=== PATIENT | male | born 1995 | race Caucasian/White ===

== ENCOUNTER 2019-05-04 01:37 | Emergency (ER) | payer SELFPAY ==
[2019-05-04 01:38] VITALS: BP 125/79; PULSE 81; RESP 18; TEMP 36.5; O2SAT 100; BMI 38.5
--- NOTE | 2019-05-04 01:46 | EKG12_ITS ---
Test Reason : CP Blood Pressure : / mmHG Vent. Rate : 081 BPM Atrial Rate : 081 BPM P-R Int : 124 ms QRS Dur : 090 ms QT Int : 354 ms P-R-T Axes : 033 036 045 degrees QTc Int : 411 ms Normal sinus rhythm with sinus arrhythmia Normal ECG Confirmed by TYSON NARANJO ([id number]), editorial cartoonist BANDAR DUARTE ([id number]) on 05/06/2019 3:35:36 PM Referred By: NEERAJ Confirmed By:TYSON NARANJO
--- NOTE | 2019-05-04 01:46 | RAD_ITS ---
STUDY: X-RAY CHEST REASON FOR EXAM: Male, 23 years old. C/O SHARP LT SIDED CHEST AND BACK PAIN STARTING MONDAY OR MONDAY -- NKI TECHNIQUE: Single AP portable view of the chest. COMPARISON: None. FINDINGS: The lungs are clear and expanded. There is no demonstrated pleural abnormality. Normal size heart. Normal mediastinum and kelsea. Normal visualized pulmonary arteries. Normal visualized aortic arch and descending thoracic aorta. Normal visualized thoracic spine. Normal visualized ribs, clavicles, and shoulders. There is no demonstrated abnormality of the visualized soft tissue structures of the upper abdomen. RAD/Chest 1 View (Portable) IMPRESSION: Normal x-ray examination of the chest. Electronically Signed: Artem Bui, at 2:57 EST Tel , Service support ,
--- NOTE | 2019-05-04 02:01 | ED.DCSUM_ITS ---
- ER Visit Summary Date of Service: 05/04/19 Chief Complaint: Chest pain History of Present Illness: The patient is a [address] Marcano. He reports that 3 days ago while changing a tire he had the abrupt onset of a left-sided chest pain. Describes it as sharp and stabbing. Is 10 out of 10 in severity. Is worsened by movement of his torso, breathing, or exertion. Has taken ibuprofen without relief. He denies any shortness of breath. He has no personal family history of DVT. No recent travel. No ankle swelling or calf pain. Physical Examination: Vitals: Stable. Afebrile. General: Well-nourished and well-developed. Head: Normocephalic atraumatic. Neck: Supple, no lymphadenopathy. No JVD. Nontender. Cardiovascular: Regular rate and rhythm. No murmurs. Respiratory: No respiratory distress. Clear to auscultation bilaterally. Moderate tenderness palpation to the left side of his chest that does reproduce his pain. Abdominal: Soft, nontender, nondistended, normal bowel sounds. No guarding, rebound, or peritoneal signs. Back: Nontender. Extremities: Nontender, no edema. Skin: Normal color, no rash. Neurologic: Alert and oriented ?3. Cranial nerves II through XII are intact. Normal strength and sensation. Psych: Normal affect. Test Results: Chest x-ray shows no acute disease. No pneumothorax. EKG is sinus with sinus arrhythmia at 81 with no acute changes. Emergency Department Course and Treatment: Patient was treated with naproxen. He is resting comfortably. Treatment Plan: Patient will be discharged with symptomatic care. Warm compresses to the area. Avoid activities that increase the pain. Use Tylenol and naproxen for pain. Follow-up with his primary care physician 1 week if not improving. Return to the emergency department for any worsening symptoms. Disposition: To home in improved and stable condition. Impression: 1. Chest wall strain. This note was generated with [employer] dictation software. It may contain incorrect words, spelling, and punctuation that were not noted in review of the chart prior to signing ED Disposition - Plan for ED Patient: Instructions: Chest Wall Strain Prescriptions: Naproxen [Naprosyn] 500 mg PO BID #20 tab Prescription Printed Referrals: Tuyet Marcano, FRANCISCA-C [NON-STAFF] - 1 Week if not improving
[2019-05-04] MEDS: Naproxen 250 MG Tablet 500 MG PO (02:06)
[2019-05-04 02:22] VITALS: RESP 16
== END 2019-05-04 02:23 | disposition home or self-care (01) ==
LOC: ED 02:17
PROVIDERS: Emergency Provider Emergency Medicine
DX: S29.011A Strain of muscle and tendon of front wall of thorax, initial encounter (principal); X58.XXXA Exposure to other specified factors, initial encounter; Y93.9 Activity, unspecified; Y92.89 Other specified places as the place of occurrence of the external cause; Y99.9 Unspecified external cause status; F17.210 Nicotine dependence, cigarettes, uncomplicated
CPT/HCPCS: 71045; 93005; 99282

== ENCOUNTER 2021-07-05 12:55 | Emergency (ER) | payer SELFPAY ==
[2021-07-05 12:56] VITALS: BP 164/94; PULSE 118; RESP 18; TEMP 36.2; O2SAT 98; BMI 34.0
--- NOTE | 2021-07-05 13:56 | EX.ED.DYSGE1 ---
HPI History of Present Illness Chief Complaint: Lower Extremity Injury Narrative Narrative: Patient presents with bilateral knee pain, this is been ongoing for multiple years since adolescent. It is anterior in the patellar region. He has no new trauma recently. He does work using heavy equipment, he does lift heavy. In going over his duties he does often bend in such a way that his knee goes over his toe thus putting a lot of strain on the patellar tendon. PFSH PFS Medical History Bilateral knee pain Contact dermatitis due to poison radha Strain of left hand Strain of left wrist Home Medications prednisone 10 mg tablet 10 mg PO DAILY #30 tab 05/06/21 [Rx Last Taken Unknown] naproxen [Naprosyn] 500 mg PO BID #20 tab 07/05/21 [Rx Last Taken Unknown] Allergy/AdvReac Type Severity Reaction Status Date / Time blueberry Allergy Anaphylaxis Verified 07/05/21 12:56 amoxicillin [From Augmentin] AdvReac Rash Verified 07/05/21 12:56 clavulanic acid AdvReac Rash Verified 07/05/21 12:56 [From Augmentin] Social History Smoking Status: Heavy Smoker (>10/day) Tobacco: How many years used: 4 ROS ROS ED ROS Narrative Past medical history: none Medications: Reviewed Social history: Noncontributory Review of systems: Musculoskeletal: Bilateral knee pain as in HPI Skin: No abrasions or lacerations Neurological: No weakness or paresthesias Hematologic: No easy bleeding or easy bruising EXAM Physical Exam Narrative Exam Narrative: Physical exam General: Patient does not appear in significant distress . Head: Normocephalic, Atraumatic Neck: No C-spine tenderness Cardiovascular: Normal distal pulses Back: Nontender, Normal Inspection. Extremities: Patient has tenderness over both patellar tendon region. There is no effusion there is no laxity. Both extensor mechanisms are normal. No erythema or calor. 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 Regardless I will refer him to orthopedics I showed him how to pick things up and how to protect his knees, I told him he would need some strengthening. Otherwise I believe he can be safely discharged I do not see a reason for emergent x-rays in the ED Discharge Plan Triage Chief Complaint: Lower Extremity Injury ED Provider: Dimas Cohen Dx/Rx/DC Orders Clinical Impression: Bilateral knee pain, Patellar tendinitis Instructions: ED Tendonitis Prescriptions: New naproxen [Naprosyn] 500 mg tablet 500 mg PO BID Qty: 20 RF: 0 No Action prednisone 10 mg tablet 10 mg PO DAILY Qty: 30 RF: 0 Primary Care Provider: Tuyet Joe NP Referrals: Ty Lozada MD [STAFF PHYSICIAN] - 2 Days Tuyet Joe NP, [employer] [Primary Care Provider] - Disposition Disposition: Home, Self Care
== END 2021-07-05 14:05 | disposition home or self-care (01) ==
PROVIDERS: Emergency Provider Emergency Medicine; PCP Nurse Practitioner Family; Visit Provider Emergency Medicine
DX: M76.50 Patellar tendinitis, unspecified knee (principal); M25.561 Pain in right knee; M25.562 Pain in left knee; F17.200 Nicotine dependence, unspecified, uncomplicated
CPT/HCPCS: 99282

== ENCOUNTER 2022-09-29 15:56 | Emergency (ER) | payer SELFPAY ==
[2022-09-29 15:57] VITALS: BP 122/79; PULSE 120; RESP 18; TEMP 37.2; O2SAT 100; BMI 38.1
--- NOTE | 2022-09-29 16:06 | EX.ED.DYSGE1 ---
HPI <TIANA De Luna - Last Filed: 09/29/22 16:35> History of Present Illness Chief Complaint: Lower Extremity Injury Narrative Narrative: Patient presents with chronic right knee pain. He has had pain in both knees off and on since high school. His right knee bothers him every other day and occasionally swells but the pain seemed worse this morning when he got up. There is no history of injury. No weakness numbness or tingling. He has had x-rays in the past and were told it was normal but has never seen a specialist for this. PFSH <TIANA De Luna - Last Filed: 09/29/22 16:35> [facility] Medical History Bilateral knee pain Contact dermatitis due to poison radha Strain of left hand Strain of left wrist Home Medications prednisone 10 mg tablet 10 mg PO DAILY #30 tabs 05/06/21 [Rx Last Taken Unknown] naproxen 500 mg tablet (Naprosyn) 500 mg PO BID #20 tabs 07/05/21 [Rx Last Taken Unknown] naproxen 500 mg tablet (Naprosyn) 500 mg PO BID PRN pain #20 tabs 09/29/22 [Rx Last Taken Unknown] Allergy/AdvReac Type Severity Reaction Status Date / Time blueberry Allergy Anaphylaxis Verified 09/29/22 15:57 amoxicillin [From Augmentin] AdvReac Rash Verified 09/29/22 15:57 clavulanic acid AdvReac Rash Verified 09/29/22 15:57 [From Augmentin] Social History Smoking Status: Heavy Smoker (>10/day) Tobacco: How many years used: 4 ROS <TIANA De Luan - Last Filed: 09/29/22 16:35> ROS ED ROS Narrative Constitutional: Negative for fever, chills, malaise. CVS: Negative for chest pain. Respiratory: Negative for shortness of breath. Neuro: Negative for motor/sensory dysfunction. Skin: Negative for rash, abscess, or wound. Musc: Positive for right knee pain. No trauma. EXAM <TIANA De Luna - Last Filed: 09/29/22 16:35> Physical Exam Narrative Exam Narrative: CONST: Patient sitting in no acute distress. EYES: Normal inspection. NECK: Normal inspection. RESP: No respiratory distress, CTAB. CVS: Regular rate and rhythm, no murmur, no gallop. SKIN: Color normal, no rash, warm, dry, intact. EXTREMITIES: Normal appearance of bilateral lower extremities, full range of motion with normal extension, normal strength and sensation, 2+ DP pulses. Slightly tender over left lateral knee, negative anterior/posterior and varus and valgus stress. NEURO: Oriented x4. PSYCH: Normal affect. Const Vital Signs: 09/29/22 15:57 Temperature 99 F Temperature Source Temporal Pulse Rate 120 H Respiratory Rate 18 Blood Pressure 122/79 H Blood Pressure Mean 93 Pulse Ox 100 <Dr. Willian Pena MD - Last Filed: 09/29/22 17:21> Physical Exam Const Vital Signs: 09/29/22 15:57 Temperature 99 F Temperature Source Temporal Pulse Rate 120 H Respiratory Rate 18 Blood Pressure 122/79 H Blood Pressure Mean 93 Pulse Ox 100 MDM <TIANA De Luna - Last Filed: 09/29/22 16:35> [facility] Narrative Medical decision making narrative: History gathered from: Patient and significant other Patient was evaluated for chronic right knee pain. He is able to fully extend and is neurovascularly intact. No obvious ligamentous or meniscal injury based on exam. He has had negative x-rays in the past and since there has been no new trauma there is no need for repeat films. He was treated with Toradol and prescribed naproxen. We discussed RICE protocol and I referred him to orthopedics since this is an ongoing issue. He was discharged in stable condition. Differential: Knee sprain, bursitis, ligamentous or meniscal injury <Dr. Willian Pena MD - Last Filed: 09/29/22 17:21> [facility] Treatment and Re-Evaluation :: I have personally performed a face to face assessment of the patient and have reviewed the JAMES Note. I performed a substantive portion of the visit including all aspects of the following. My silva findings include: History: Patient presents with right knee pain. He states this has been going on for at least 6 years. 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 The right one hurts the most and is the biggest issue. It hurts mostly in the front of the knees. He does have good days and bad days. He does have a bit of a theater sign by history. No prior surgery. He has had no fevers or chills. He has no acute trauma. No recent infection Exam: Patient awake alert no acute distress. The knee is not swollen. There is no effusion. No warmth or redness. No indication whatsoever of infection. He points mostly to the anterior surface around the patella as the area of his pain. He does have a little bit of crepitance with motion making me suspect there is a component of patellofemoral syndrome. Medical Decision Making: There really is not any indication specifically for x-ray. He has chronic symptoms. He has had x-rays before. He has no acute change. But he does need follow-up which was explained to him. Discharge Plan Triage Chief Complaint: Lower Extremity Injury ED Midlevel Provider: Flora Elizondo ED Provider: Willian Pena Dx/Rx/DC Orders Clinical Impression: Knee pain, right Instructions: ED Knee Pain of Uncertain Cause Prescriptions: New naproxen [Naprosyn] 500 mg tablet 500 mg PO BID PRN (Reason: pain) Qty: 20 0RF No Action prednisone 10 mg tablet 10 mg PO DAILY Qty: 30 0RF Hold Instructions: Order Completed Rx Instructions: 4 tablets daily x3 days, then 3 tablets daily x3 days, then 2 tablets daily x3 days, then 1 tablet daily x3 days. naproxen [Naprosyn] 500 mg tablet 500 mg PO BID Qty: 20 0RF Hold Instructions: Order Completed Primary Care Provider: Care Physician,No Primary Referrals: Ty Lozada MD [Med Staff - Active Staff] - Care Physician,No Primary [Primary Care Provider] - Activity Restrictions/Additional Instructions: Follow-up with the orthopedic doctor Disposition Disposition: Home, Self Care Discharge Date/Time: 09/29/22 16:44
[2022-09-29] MEDS: Ketorolac 30 MG/ML Syringe IM (16:17)
== END 2022-09-29 16:44 | disposition home or self-care (01) ==
PROVIDERS: Emergency Provider Emergency Medicine; Visit Provider Emergency Medicine
DX: M25.561 Pain in right knee (principal); F17.210 Nicotine dependence, cigarettes, uncomplicated; G89.29 Other chronic pain
CPT/HCPCS: 96372; 99283

== ENCOUNTER 2023-01-27 07:16 | Emergency (ER) | payer SELFPAY ==
[2023-01-27 07:17] VITALS: BP 130/82; PULSE 74; RESP 16; TEMP 35.3; O2SAT 100; BMI 38.5
--- NOTE | 2023-01-27 07:37 | EDS_ITS ---
HPI HPI - GI History of Present Illness Chief Complaint: GI Bleed Informant: patient Narrative Narrative: Patient had a bowel movement today with bright red blood mixed in with it. He denies any rectal pain, abdominal pain, abdominal distention, nausea, vomiting, fevers, chills, tremors, lightheadedness, fatigue or weakness, problems urinating. States he has never had this before. He states in the ER once, he was diagnosed with fatty liver disease. He drinks alcohol infrequently. He does not have a PCP and has never followed up about this. He does not have a family history of colon cancer at young ages, nor liver disease that he knows of. He has never been diagnosed with cirrhosis. He has never had any jaundice, diffuse unexplained pruritus, or any other symptoms right now. He has not been constipated, he denies straining to have bowel movements recently. [facility] Medical History (Updated 01/27/23 @ 07:[address] Ender Escobar MD) Bilateral knee pain Contact dermatitis due to poison radha Fatty liver Strain of left hand Strain of left wrist Home Medications prednisone 10 mg tablet 10 mg PO DAILY #30 tabs 05/06/21 [Rx Last Taken Unknown] naproxen 500 mg tablet (Naprosyn) 500 mg PO BID #20 tabs 07/05/21 [Rx Last Taken Unknown] naproxen 500 mg tablet (Naprosyn) 500 mg PO BID PRN pain #20 tabs 09/29/22 [Rx Last Taken Unknown] hydrocortisone 1 %-pramoxine 1 % rectal foam (Proctofoam HC) 1 applic [place] QHS 1 week #10 grams 01/27/23 [Rx Last Taken Unknown] Allergy/AdvReac Type Severity Reaction Status Date / Time blueberry Allergy Anaphylaxis Verified 01/27/23 07:24 amoxicillin [From Augmentin] AdvReac Rash Verified 01/27/23 07:24 clavulanic acid AdvReac Rash Verified 01/27/23 07:24 [From Augmentin] Social History Smoking Status: Heavy Smoker (>10/day) Tobacco: How many years used: 4 ROS ROS ED Constitutional Constitutional ED: Denies chills or fever(s) Eyes Eyes: Denies change in vision or diplopia ENT ENT ED: Denies rhinorrhea or sore throat Cardiovascular Cardiovascular: Denies chest pain or palpitations Respiratory/Chest Respiratory/Chest: Denies cough or dyspnea Gastrointestinal Gastrointestinal: Reports as per HPI and rectal bleeding; Denies abdominal pain, diarrhea, nausea or vomiting Genitourinary Genitourinary ED: Denies dysuria or hematuria Musculoskeletal Musculoskeletal: Denies back pain or neck pain Integumentary Denies abscess or rash Neurologic Neurologic: Denies headache(s), paresthesias or weakness Psychiatric Psychiatric: Denies anxiety or suicidal thoughts EXAM Physical Exam Const Vital Signs: 01/27/23 07:17 Temperature 95.6 F L Temperature Source Temporal Pulse Rate 74 Respiratory Rate 16 Blood Pressure 130/82 H Blood Pressure Mean 98 Pulse Ox 100 Oxygen Delivery Method Room Air Positive well nourished and well developed General Appearance ED: well developed and NAD HEENT Reports moist mucous membranes normocephalic and atraumatic Eyes PERRL and EOMs intact bilaterally Neck full ROM and supple Resp normal respiratory effort and clear to auscultation bilaterally Cardio regular rate, regular rhythm and no murmurs GI non-tender and non-distended GI Narrative: Perianal/rectal exam is normal unremarkable. There are no external hemorrhoids. There is no tenderness or sign of an abscess. On HENOK, there is no tenderness and no blood, trace amount of light brown stool, no melena. Auscultation: normoactive bowel sounds Palpation: soft Back/Spine no CVA tenderness General Back: other FROM Extremity normal to inspection General Extremety ED: Negative for edema, pulses abnormal or tenderness General Extremity: Negative for edema or pulses abnormal Neuro oriented x3, CN's II-XII intact bilaterally and no sensory deficits noted Sensorium / Orientation: awake and alert Motor Exam: strength 5/5 throughout Skin no rashes or lesions noted and no wounds MDM MDM MDM Narrative Medical decision making narrative: This patient does not have any signs or symptoms of cirrhosis. He was told that fatty liver could give him rectal bleeding. I advised him that this would only be the case if he had full out cirrhosis, which would likely be giving him other symptoms that he does not have. I do not think he needs a full work-up here in the ER emergently. Much more likely cause of his rectal bleeding would be an internal hemorrhoid that is not related to cirrhosis. I think treating this w ith Proctofoam would be reasonable, and follow-up with the primary doctor if it does not help, or returning to the ER if he develops other symptoms which we discussed. He is comfortable with that plan. He was given a PCP the next on the unassigned list. I think he needs to start there for this, I advised usually fatty liver is need to be followed to ensure things are not progressing or worsening, and he may need to be referred for colonoscopy if this bleeding persists. Discharge Plan Triage Chief Complaint: GI Bleed ED Provider: Ender Escobar Dx/Rx/DC Orders Clinical Impression: Painless rectal bleeding Instructions: ED Lower GI Bleeding (Stable) Prescriptions: New Proctofoam HC 1-1 % foam 1 applic SD QHS 7 Days Qty: 10 0RF No Action prednisone 10 mg tablet 10 mg PO DAILY Qty: 30 0RF Hold Instructions: Order Completed Rx Instructions: 4 tablets daily x3 days, then 3 tablets daily x3 days, then 2 tablets daily x3 days, then 1 tablet daily x3 days. naproxen [Naprosyn] 500 mg tablet 500 mg PO BID Qty: 20 0RF Hold Instructions: Order Completed naproxen [Naprosyn] 500 mg tablet 500 mg PO BID PRN (Reason: pain) Qty: 20 0RF Hold Instructions: Pt has been DC'd Stand Alone Forms: ED Work / School Excuse Primary Care Provider: Care Physician,No Primary Referrals: Amanda Mary, [Med Staff - Application Support Consultant] - Care Physician,No Primary [Primary Care Provider] - Disposition Disposition: Home, Self Care
== END 2023-01-27 07:58 | disposition home or self-care (01) ==
LOC: ED 07:51
PROVIDERS: Emergency Provider Emergency Medicine; Visit Provider Emergency Medicine
DX: K62.5 Hemorrhage of anus and rectum (principal); K76.0 Fatty (change of) liver, not elsewhere classified; F17.210 Nicotine dependence, cigarettes, uncomplicated
CPT/HCPCS: 99282

== ENCOUNTER 2023-02-13 07:47 | Emergency (ER) | payer OTHER, SELFPAY ==
[2023-02-13 07:48] VITALS: BP 136/87; PULSE 93; RESP 14; TEMP 36.3; O2SAT 100; BMI 36.4
--- NOTE | 2023-02-13 08:29 | ED.VIS.BACK ---
HPI History of Present Illness Chief Complaint: Back Narrative Narrative: 27-year-old male presenting with lower back pain. He states this started overnight. He lifted a heavy gas tank yesterday. He states he gradually had worsening pain and points to his lower back. It does not lateralize. No history of kidney stones. Urinary complaints. No constipation or diarrhea. No loss of bladder bowel control or saddle anesthesia. Patient states that he has been trying ibuprofen, Tylenol, hot baths without significant relief. He has not had any direct trauma. He is ambulatory. [facility] Medical History Bilateral knee pain Contact dermatitis due to poison radha Fatty liver Strain of left hand Strain of left wrist Home Medications prednisone 10 mg tablet 10 mg PO DAILY #30 tabs 05/06/21 [Rx Last Taken Unknown] naproxen 500 mg tablet (Naprosyn) 500 mg PO BID #20 tabs 07/05/21 [Rx Last Taken Unknown] naproxen 500 mg tablet (Naprosyn) 500 mg PO BID PRN pain #20 tabs 09/29/22 [Rx Last Taken Unknown] hydrocortisone 1 %-pramoxine 1 % rectal foam (Proctofoam HC) 1 applic [place] QHS 1 week #10 grams 01/27/23 [Rx Last Taken Unknown] naproxen 500 mg tablet (Naprosyn) 500 mg PO BID PRN pain #20 tabs 02/13/23 [Rx Last Taken Unknown] prednisone 50 mg tablet 50 mg PO DAILY #2 tabs 02/13/23 [Rx Last Taken Unknown] tizanidine 4 mg tablet 4 mg PO Q8H PRN muscle spasticity #20 tabs 02/13/23 [Rx Last Taken Unknown] Allergy/AdvReac Type Severity Reaction Status Date / Time blueberry Allergy Anaphylaxis Verified 02/13/23 07:49 amoxicillin [From Augmentin] AdvReac Rash Verified 02/13/23 07:49 clavulanic acid AdvReac Rash Verified 02/13/23 07:49 [From Augmentin] Social History Smoking Status: Heavy Smoker (>10/day) Tobacco: How many years used: 4 ROS ROS ED Constitutional Constitutional ED: Denies chills, fever(s) or sweats Eyes Eyes: Denies blurry vision or change in vision ENT ENT ED: Denies ear pain or sore throat Cardiovascular Cardiovascular: Denies chest pain, palpitations or racing heartbeat Respiratory/Chest Respiratory/Chest: Denies cough, dyspnea or sputum Gastrointestinal Gastrointestinal: Denies abdominal pain, constipation, diarrhea, nausea or vomiting Genitourinary Genitourinary ED: Denies dysuria, hematuria or urinary frequency Musculoskeletal Musculoskeletal: Reports back pain; Denies arthralgias, myalgias or neck pain Integumentary Denies abscess, Abrasions or rash Neurologic Neurologic: Denies headache(s), paresthesias or weakness Psychiatric Psychiatric: Denies anxiety, depression, suicidal ideation or suicidal thoughts Endocrine Endocrinology: Denies polydipsia or polyuria EXAM Physical Exam Const Vital Signs: 02/13/23 07:48 Temperature 97.3 F L Temperature Source Temporal Pulse Rate 93 Respiratory Rate 14 Blood Pressure 136/87 H Blood Pressure Mean 103 Pulse Ox 100 Oxygen Delivery Method Room Air Positive well nourished General Appearance ED: NAD HEENT Reports moist mucous membranes Eyes PERRL Resp normal respiratory effort Cardio regular rate and regular rhythm Back/Spine Back/Spine Narrative: Tenderness to palpation of the paraspinal musculature of L2 bilaterally. No midline deformity or step-off. Patient able to sit up under his own strength. He is able to twist his trunk and roll over without much difficulty. He is able to lift both of his legs up off the bed he is able to get up and stand. Extremity normal to inspection General Extremety ED: Negative for tenderness Neuro oriented x3 and no sensory deficits noted Motor Exam: strength 5/5 throughout Psych mental status grossly normal MDM MDM MDM Narrative Medical decision making narrative: Patient presenting with lumbar strain. He will be treated with Norflex, Toradol, prednisone ED. I do not believe needs imaging. Will reevaluate. Valuation at 9:40 AM the patient is doing much better. He will be given a prescription for Naprosyn and muscle relaxers for home. Patient presenting short course of prednisone which she will take prior to starting Naprosyn therapy. Follow-up with PCP to assure resolution. Impression: 1 lumbar strain Discharge Plan Triage Chief Complaint: Back ED Provider: Dashawn Ballesteros Dx/Rx/DC Orders Instructions: ED Back Spasm, No Trauma Prescriptions: New prednisone 50 mg tablet 50 mg PO DAILY Qty: 2 0RF tizanidine 4 mg tablet 4 mg PO Q8H PRN (Reason: muscle spasticity) Qty: 20 0RF naproxen [Naprosyn] 500 mg tablet 500 mg PO BID PRN (Reason: pain) Qty: 20 0RF No Action prednisone 10 mg tablet 10 mg PO DAILY Qty: 30 0RF Hold Instructions: Order Completed Rx Instructions: 4 tablets daily x3 days, then 3 tablets daily x3 days, then 2 tablets daily x3 days, then 1 tablet daily x3 days. naproxen [Naprosyn] 500 mg tablet 500 mg PO BID Qty: 20 0RF Hold Instructions: Order Completed naproxen [Naprosyn] 500 mg tablet 500 mg PO BID PRN (Reason: pain) Qty: 20 0RF Hold Instructions: Pt has been DC'd Proctofoam HC 1-1 % foam 1 applic [place] QHS 7 Days Qty: 10 0RF Primary Care Provider: Care Physician,No Primary Referrals: [facility] [Outside] - 3-5 Days Care Physician,No Primary [Primary Care Provider] - Disposition Disposition: Home, Self Care
[2023-02-13] MEDS: Ketorolac 15 MG/ML Vial IM (08:51)
[2023-02-13] MEDS: Orphenadrine 60 MG/2 ML Ampul IM (08:52)
[2023-02-13] MEDS: predniSONE 20 MG Tablet 60 MG PO (08:52)
== END 2023-02-13 09:54 | disposition home or self-care (01) ==
PROVIDERS: Emergency Provider Student in an Organized Health Care Education/Training Program; Visit Provider Student in an Organized Health Care Education/Training Program
DX: S39.012A Strain of muscle, fascia and tendon of lower back, initial encounter (principal); F17.200 Nicotine dependence, unspecified, uncomplicated; X50.0XXA Overexertion from strenuous movement or load, initial encounter; Y93.89 Activity, other specified
CPT/HCPCS: 96372; 99282

== ENCOUNTER 2023-02-28 00:08 | Emergency (ER) | payer OTHER, SELFPAY ==
[2023-02-28 00:09] VITALS: BP 132/91; PULSE 131; RESP 18; TEMP 36.3; O2SAT 96; BMI 37.5
[2023-02-28 00:12] VITALS: PULSE 108
--- NOTE | 2023-02-28 00:19 | EX.ED.DYSGE1 ---
HPI History of Present Illness Chief Complaint: Cold Sx Detail of Chief Complaint: Cold symptoms x 2 days Informant: patient Narrative Narrative: Patient presents emergency department complaint of a sore throat as well as a mild headache and occasional cough. Denies fever although has had some sweats. Denies sick contacts. Cough mostly nonproductive. [facility] Medical History Bilateral knee pain Contact dermatitis due to poison radha Fatty liver Strain of left hand Strain of left wrist Home Medications amoxicillin 500 mg tablet 500 mg PO TID #30 tabs 02/28/23 [Rx Last Taken Unknown] Allergy/AdvReac Type Severity Reaction Status Date / Time blueberry Allergy Anaphylaxis Verified 02/28/23 00:13 amoxicillin [From Augmentin] AdvReac Rash Verified 02/28/23 00:13 clavulanic acid AdvReac Rash Verified 02/28/23 00:13 [From Augmentin] Social History Smoking Status: Heavy Smoker (>10/day) Tobacco: How many years used: 4 ROS ROS ED Review of Systems ROS Unobtainable: other Constitutional Constitutional ED: Reports lethargy and sweats; Denies chills, fever(s) or weight loss Eyes Eyes: Denies blurry vision, change in vision or diplopia ENT ENT ED: Reports sore throat; Denies rhinorrhea Cardiovascular Cardiovascular: Denies chest pain, orthopnea or racing heartbeat Respiratory/Chest Respiratory/Chest: Reports cough; Denies dyspnea, dyspnea on exertion, orthopnea or sputum Gastrointestinal Gastrointestinal: Denies abdominal pain, diarrhea, nausea or vomiting Genitourinary Genitourinary ED: Denies dysuria, hematuria or urinary frequency Musculoskeletal Musculoskeletal: Denies arthralgias, back pain, myalgias or neck pain Integumentary Denies abscess, Abrasions or rash Neurologic Neurologic: Denies headache(s) or weakness Psychiatric Psychiatric: Denies anxiety, depression or suicidal thoughts Endocrine Endocrinology: Denies polydipsia, polyphagia or polyuria Hematologic/Lymphatic Hematologic/Lymphatic: Denies easy bleeding, easy bruising or lymphadenopathy Allergic/Immunologic Allergic/Immunologic ED: Denies mouth swelling, tongue swelling or urticaria EXAM Physical Exam Const Vital Signs: 02/28/23 00:09 02/28/23 00:12 02/28/23 00:59 Temperature 97.3 F L Temperature Source Temporal Pulse Rate 131 H 108 H 112 H Respiratory Rate 18 18 Blood Pressure 132/91 H Blood Pressure Mean 104 Pulse Ox 96 98 Oxygen Delivery Method Room Air Positive well nourished and well developed General Appearance ED: well developed and NAD HEENT Reports TM's clear and moist mucous membranes HEENT Narrative: Mild pharyngeal erythema with tonsils that are +3 with tonsillar exudates noted. Uvula midline. No trismus. No significant cervical adenopathy. normocephalic and atraumatic; Negative for trauma or tenderness Tympanic Membrane ED: Yes TM's clear Eyes PERRL and EOMs intact bilaterally General Eye ED: Negative for pale conjunctiva or scleral icterus Neck no lymphadenopathy, supple and no JVD General: Negative for tenderness Chest Wall inspection of chest normal and palpation of chest normal Chest: Negative for tenderness Resp normal respiratory effort and clear to auscultation bilaterally Effort and Inspection: Negative for respiratory distress or pain with movement Auscultation: Negative for rhonchi, wheezes or diminished lung sounds Cardio regular rate, regular rhythm, S1 normal heart sound, S2 normal heart sound and no murmurs Peripheral Pulses: pulses 2+ throughout GI normal to inspection, nondistended, normoactive bowel sounds, soft to palpation, non-tender, non-distended and no masses Back/Spine no CVA tenderness and no thoracic nor lumbar tenderness Extremity normal to inspection General Extremety ED: Negative for edema General Extremity: Negative for edema Neuro oriented x3, CN's II-XII intact bilaterally, no sensory deficits noted and gait normal Sensorium / Orientation: awake, alert, oriented to person, oriented to place and oriented to time Motor Exam: strength 5/5 throughout and strength abnormal Psych mental status grossly normal Skin no rashes or lesions noted and no wounds MDM MDM MDM Narrative Medical decision making narrative: Patient had a COVID and flu test that were negative. Strep screen was positive. Patient was started on amoxicillin. He tells me is allergic to Augmentin he had a rash but he can take anything else in the penicillin family including amoxicillin which she has had before without any difficulty. Patient advised to return if worsening throat pain, difficulty swallowing, or condition worsening away. Discharge Plan Triage Chief Complaint: Cold Sx ED Provider: Caroline Tellez Dx/Rx/DC Orders Clinical Impression: Acute streptococcal pharyngitis Instructions: ED Pharyngitis, Strep (Confirmed) Prescriptions: New amoxicillin 500 mg tablet 500 mg PO TID Qty: 30 0RF Primary Care Provider: Care Physician,No Primary Referrals: Andrew Gilbert MD [Med Staff - [employer]] - 3-5 Days Care Physician,No Primary [Primary Care Provider] - Disposition Disposition: Home, Self Care Discharge Date/Time: 02/28/23 01:01
[2023-02-28] MEDS: AMOXICILLIN 500 MG CAPSULE PO (00:56)
[2023-02-28 00:59] VITALS: PULSE 112; RESP 18; O2SAT 98
== END 2023-02-28 01:01 | disposition home or self-care (01) ==
PROVIDERS: Emergency Provider Emergency Medicine; Visit Provider Emergency Medicine
DX: J02.0 Streptococcal pharyngitis (principal); F17.200 Nicotine dependence, unspecified, uncomplicated
CPT/HCPCS: 87428; 87880; 99282; A4216

== ENCOUNTER 2023-03-12 02:12 | Emergency (ER) | payer SELFPAY ==
[2023-03-12 02:13] VITALS: BP 133/79; PULSE 100; RESP 18; TEMP 36.6; O2SAT 96; BMI 37.4
[2023-03-12] MEDS: Ibuprofen 600 MG Tablet PO (02:56)
[2023-03-12] MEDS: dexAMETHasone 10 MG/ML Vial PO.IVFORM (02:56)
--- NOTE | 2023-03-12 02:59 | EDS_ITS ---
HPI History of Present Illness Chief Complaint: Sore Throat Informant: patient Narrative Narrative: Patient is a 27-year-old male with no segment past medical history presenting with recurrent throat pain. Patient was seen and evaluated on 02/28 in her ER and diagnosed with strep throat. He had a positive strep test. He was prescribed amoxicillin. He states that he was feeling better about 2 days ago when he started feel worse again. He notes he is now having hard time swallowing and drinking because it so painful. Is been taking ibuprofen with his last dose at noon today. Denies any recent fever. States sometimes he has a cough because of the sensation in his throat but denies any other URI symptoms. Denies any rash. Denies any change in his voice or difficulty opening his mouth. No other complaints or concerns at this time. [facility] Medical History Bilateral knee pain Contact dermatitis due to poison radha Fatty liver Strain of left hand Strain of left wrist Home Medications amoxicillin 500 mg tablet 500 mg PO TID #30 tabs 02/28/23 [Rx Last Taken Unkno wn] Allergy/AdvReac Type Severity Reaction Status Date / Time blueberry Allergy Anaphylaxis Verified 03/12/23 02:16 amoxicillin [From Augmentin] AdvReac Rash Verified 03/12/23 02:16 clavulanic acid AdvReac Rash Verified 03/12/23 02:16 [From Augmentin] Social History Smoking Status: Heavy Smoker (>10/day) Tobacco: How many years used: 4 ROS ROS ED Constitutional Constitutional ED: Denies chills or fever(s) Eyes Eyes: Denies change in vision ENT ENT ED: Reports sore throat; Denies ear pain or rhinorrhea Cardiovascular Cardiovascular: Denies chest pain or palpitations Respiratory/Chest Respiratory/Chest: Denies cough Gastrointestinal Gastrointestinal: Denies nausea or vomiting Integumentary Denies rash Neurologic Neurologic: Denies headache(s) EXAM Physical Exam Const Vital Signs: 03/12/23 02:13 Temperature 97.9 F Temperature Source Temporal Pulse Rate 100 Respiratory Rate 18 Blood Pressure 133/79 H Blood Pressure Mean 97 Pulse Ox 96 Oxygen Delivery Method Room Air Positive well nourished and well developed General Appearance ED: well developed and NAD HEENT Reports TM's clear and moist mucous membranes HEENT Narrative: Erythema and mild edema of the bilateral tonsils, right slightly greater than left. Exudate noted on the left. No asymmetric swelling or uvular deviation present. No trismus. Normal phonation. Tympanic Membrane ED: Yes TM's clear Eyes PERRL and EOMs intact bilaterally Neck no lymphadenopathy and supple Neck Narrative: Range of motion normal and without pain General: Negative for tenderness Chest Wall inspection of chest normal and palpation of chest normal Resp normal respiratory effort Cardio regular rate and regular rhythm GI normal to inspection, nondistended, normoactive bowel sounds Neuro oriented x3 Sensorium / Orientation: alert Psych mental status grossly normal Skin no rashes or lesions noted MDM MDM MDM Narrative Medical decision making narrative: Patient evaluated for recurrent sore throats. Differential includes recurrent strep throat or viral pharyngitis. Low suspicion for peritonsillar abscess based on physical exam. Patient overall is well-appearing does not appear dehydrated. I do not think requires IV fluids. Strep swab as well as flu and COVID swab are obtained. Is given Motrin and Decadron in the ER for symptomatic relief. Patient resting comfortably on repeat evaluation. Strep swab is positive. Will treat with IM Bicillin this time. While he has a documented allergy to Augmentin he states that he can tolerate all other penicillins and it is probably more of an allergy to the clavulanic acid. He states he had no issues with the amoxicillin last time. Given return precautions. Given referral for ENT. Discharged home in stable condition. Discharge Plan Triage Chief Complaint: Sore Throat ED Provider: Zoila Rinaldi Dx/Rx/DC Orders Clinical Impression: Recurrent streptococcal pharyngitis Instructions: ED Pharyngitis, Strep (Confirmed) Prescriptions: No Action amoxicillin 500 mg tablet 500 mg PO TID Qty: 30 0RF Primary Care Provider: Care Physician,No Primary Referrals: Sami Taylor MD [Med Staff - Active Staff] - As Needed Care Physician,No Primary [Primary Care Provider] - Activity Restrictions/Additional Instructions: Given a one-time dose of antibiotics that should clear this up. He also given a dose of steroid to help with the swelling and pain. If you have worsening swelling, difficulty swallowing, increased pain or further concerns please return to the emergency room. Continue to alternate ibuprofen and Tylenol as needed for pain at home. Disposition Disposition: Home, Self Care Discharge Date/Time: 03/12/23 04:42
[2023-03-12] MEDS: Penicillin G Benzathine 1.2 MU/2 ML Syringe IM (04:25)
== END 2023-03-12 04:42 | disposition home or self-care (01) ==
PROVIDERS: Emergency Provider Emergency Medicine; Visit Provider Emergency Medicine
DX: J02.0 Streptococcal pharyngitis (principal); F17.210 Nicotine dependence, cigarettes, uncomplicated
CPT/HCPCS: 87428; 87880; 99283

== ENCOUNTER 2023-03-21 02:56 | Emergency (ER) | payer OTHER, SELFPAY ==
[2023-03-21 02:57] VITALS: BP 142/88; PULSE 94; RESP 16; TEMP 35.6; O2SAT 97; BMI 37.1
[2023-03-21 03:00] VITALS: BP 142/88; PULSE 94; RESP 16; TEMP 35.5; O2SAT 97
--- NOTE | 2023-03-21 03:13 | EX.ED.DYSGE1 ---
HPI History of Present Illness Chief Complaint: Lower Extremity Injury Informant: patient Narrative Narrative: Patient is a 27-year-old male with no significant past medical history. He states that roughly 12 hours ago he was getting out of his car and when he stepped down he twisted and injured his right knee. He states that he has been icing and elevating the knee but is still swollen and painful and he cannot sleep secondary to this and therefore comes in for evaluation. He denies any other injuries and he denies any numbness tingling or weakness [facility] Medical History Bilateral knee pain Contact dermatitis due to poison radha Fatty liver Strain of left hand Strain of left wrist Home Medications amoxicillin 500 mg tablet 500 mg PO TID #30 tabs 02/28/23 [Rx Last Taken Unknown] Allergy/AdvReac Type Severity Reaction Status Date / Time blueberry Allergy Anaphylaxis Verified 03/21/23 02:56 amoxicillin [From Augmentin] AdvReac Rash Verified 03/21/23 02:56 clavulanic acid AdvReac Rash Verified 03/21/23 02:56 [From Augmentin] Social History Smoking Status: Heavy Smoker (>10/day) Tobacco: How many years used: 4 ROS ROS ED Constitutional Constitutional ED: Denies chills or fever(s) ENT ENT ED: Denies sore throat Cardiovascular Cardiovascular: Denies chest pain Respiratory/Chest Respiratory/Chest: Denies cough or dyspnea Gastrointestinal Gastrointestinal: Denies abdominal pain, diarrhea, nausea or vomiting Genitourinary Genitourinary ED: Denies dysuria Musculoskeletal Musculoskeletal: Reports other Details: Positive right knee pain Integumentary Denies Abrasions or rash Neurologic Neurologic: Denies headache(s) or paresthesias Hematologic/Lymphatic Hematologic/Lymphatic: Denies easy bleeding or easy bruising EXAM Physical Exam Const Vital Signs: 03/21/23 02:57 03/21/23 03:00 Temperature 96.0 F L 96 F L Temperature Source Temporal Temporal Pulse Rate 94 94 Respiratory Rate 16 16 Blood Pressure 142/88 H 142/88 H Blood Pressure Mean 106 106 Pulse Ox 97 97 Oxygen Delivery Method Room Air Room Air Positive well nourished and well developed General Appearance ED: well developed HEENT HEENT Narrative: Normocephalic atraumatic Eyes PERRL and EOMs intact bilaterally Neck supple Resp normal respiratory effort and clear to auscultation bilaterally Cardio regular rate and regular rhythm Extremity Extremity Narrative: Right lower extremity is neurovascularly intact. There is mild soft tissue swelling along the anterior aspect of the right knee mainly over top of the medial aspect of the patella/knee. There is no erythema or warmth. No ecchymosis noted. No obvious bony deformity or joint effusion. Patellar tendon is intact. There is slight laxity when stressing the right MCL compared to left concerning for grade 2 MCL sprain. Remainder of the exam is normal Neuro oriented x3, CN's II-XII intact bilaterally and no sensory deficits noted Sensorium / Orientation: alert Psych mental status grossly normal Skin no rashes or lesions noted Skin Narrative: Mild soft tissue swelling to the anterior aspect of the right knee as documented above without obvious erythema or ecchymosis induration or fluctuance MDM MDM MDM Narrative Medical decision making narrative: Patient arrived to the ER slightly hypertensive otherwise with stable vitals. Reported a twisting motion to his right knee roughly 12 hours ago. Differential diagnosis is for meniscus injury versus ligamentous sprain or tear versus potential tibial spine or tibial plateau fracture. Secondary to this an x-ray was obtained. X-ray revealed no acute fracture dislocation or joint effusion. By exam he does have mild ligamentous laxity of the right MCL compared to left and with his history of a twisting motion this would classify as a grade 2 MCL sprain. At this time patient be treated symptomatically and can follow-up with orthopedics to discuss need for further testing such as MRI or treatment options such as bracing but is otherwise safe for discharge. History & Record Review Discussion w/independent historian: Patient Radiography Diagnostic Testing: Clinical Impression(s) from Imaging Studies Knee X-Ray 03/21/23 03:15 IMPRESSION: Negative right knee Electronically Signed: Evans Nagel MD at 3:31 EST , X-ray of the right knee as interpreted by the emergency medicine physician reveals no acute fracture dislocation or joint effusion Discharge Plan Triage Chief Complaint: Lower Extremity Injury ED Provider: Bal Navarrete Dx/Rx/DC Orders Clinical Impression: Grade 2 sprain of medial collateral ligament of right knee Instructions: Medial Collateral Ligament Sprain, ED Knee Sprain Ligaments Prescriptions: No Action amoxicillin 500 mg tablet 500 mg PO TID Qty: 30 0RF Stand Alone Forms: ED Work / School Excuse Primary Care Provider: Care Physician,No Primary Referrals: Denys Richter MD [Med Staff - Active Staff] - Care Physician,No Primary [Primary Care Provider] - Disposition Disposition: Home, Self Care
--- NOTE | 2023-03-21 03:15 | RAD_ITS ---
INDICATION: pain EXAMINATION/TECHNIQUE: X-RAY - RIGHT XR Knee Complete 4 Views or More COMPARISON: Right knee radiographs from 05/06/2021 FINDINGS: SOFT TISSUES: No significant soft tissue swelling or significant joint effusion. No radiopaque foreign body detected. BONES/JOINTS: No acute fracture or subluxation. Normal alignment. Preservation of the joint space(s). No suspicious osseous lesion observed. RAD/Knee 4 or More Views IMPRESSION: Negative right knee Electronically Signed: Evans Nagel MD at 3:31 EST ,
[2023-03-21] MEDS: Ketorolac 30 MG/ML Syringe IM (03:19)
--- OUTSIDE RECORDS SUMMARY | 2023-03-21 03:30 | XMS RPT_ITS | CCD ---
Author Name Unknown Address [email or web address] [place] [address] Organization [facility] Care Team Providers Care Packaging Line Operator Name Role Phone GLORY PALACIO Unavailable Unavailable GLORY PALACIO Unavailable Unavailable GLORY PARKER Primary Care Provider [phone]( [phone] JULES LAMBERT Emergency Provider [phone] Free, Text Entry Unavailable Unavailable BILL, DR ANGELA Lucio Primary Care Unavaila ble BILL, DR ANGELA Lucio Attending Unavaila ble ROBERT, TIMOTHY Consulting Unavailable ROBERT, TIMOTHY Referring Unavailable BILL, DR ANGELA Lucio Admitting Unavaila ble PROVIDER, UNKNOWN Consulting Unavailable ROBERT, TIMOTHY Consulting Unavailable ROBERT, TIMOTHY Referring Unavailable TOLU ARELLANO DO Admitting Unavailable TOLU ARELLANO DO Primary Care Unavailable TOLU ARELLANO DO Attending Unavailable PROVIDER, UNKNOWN Consulting Unavailable JOSE REDMAN, DR BASILIA Gagnon Admitting Unavaila ble JOSE REDMAN, DR BASILIA Gagnon Consulting Unavaila ble JOSE REDMAN, DR BASILIA Gagnon Attending Unavaila ble NONE, NONE Primary Care Unavailable NONE, NONE Consulting Unavailable MAIKOL DOMAYA Consulting Unavailable WOOD DO, TANESHA A Admitting Unavailable WOOD DO, TANESHA A Attending Unavailable NONE, NONE Primary Care Unavailable WOOD DO, TANESHA A Consulting Unavailable NONE, NONE Consulting Unavailable ZAPATA DO, ANUSHKA K Admitting Unavailable ZAPATA DO, ANUSHKA K Attending Unavailable GERARD ARRIAZA MD Consulting Unavailable NONE, NONE Primary Care Unavailable ZAPATA DO, ANUSHKA K Consulting Unavailable NONE, NONE Consulting Unavailable Unavailable Unavailable Unavailable Allergies Allergy Classification Reported Allergen(s) Allergy Type Date of Onset Reaction(s) Facility (2 sources) Amoxicillin Drug Allergy 0 Skin Rash - Hives [facility] Work Phone: (2 sources) clavulanic acid Allergy to substance 0 Skin Rash - Hives [facility] Work Phone: (2 sources) Amoxicillin / Clavulanate Drug Allergy Rash [facility] (1 source) Amoxicillin / Clavulanate Drug Allergy [facility] Repository (1 source) Amoxicillin / Clavulanate Drug Allergy [facility] Repository Medications Current Medications Medication Drug Class(es) Dates Sig (Normalized) Sig (Original) loperamide hydrochloride 2 mg oral capsule (2 sources) Opioid Agonist Start: 01-29-2020 take 1 capsule by mouth three times daily Loperamide Hcl (Loperamide) 2 MG Capsule Active 2 MG PO Three Times A Day January 29, 2020 12:55am Completed/Discontinued Medications Medication Drug Class(es) Dates Sig (Normalized) Sig (Original) NEGATED: Highlighted row has not occurred!No Current Medications (2 sources) No Current Medic ations Problems Active Problems Problem Classification Problem Date Documented Da te Episodic/Chronic Abdominal pain (2 sources) Abdominal pain; Translations: [Abdominal pain] Episodic Allergic reactions (1 source) Allergy status to other antibiotic agents status; Translations: [Allergy status to other antibiotic agents] Onset: 12-23-2021 Episodic Attention-deficit, conduct, and disruptive behavior disorders (1 source) Attention-deficit hyperactivity disorder, unspecified type; Translations: [Attention-deficit hyperactivity disorder, unspecified type] Onset: 12-23-2021 Chronic E Codes: Natural/environment (3 sources) Overexertion from strenuous movement or load, initial encounter; Translations: [Exposure to other specified factors, initial encounter] Onset: 12-20-2021 Episodic Gastrointestinal hemorrhage (2 sources) Hematochezia; Translations: [Blood present in stool] Episodic Nonspecific chest pain (2 sources) Chest pain, unspecified; Translations: [CHEST PAIN UNSPECIFIED] Onset: 03-01-2022 Episodic Other aftercare (1 source) Other intermodal owner operator truck driver (current) drug therapy; Translations: [Other intermodal owner operator truck driver (current) drug therapy] Onset: 12-23-2021 Episodic Other gastrointestinal disorders (2 sources) Diarrhea; Translations: [Diarrhea] Episodic Other gastrointestinal disorders (3 sources) Diarrhea, unspecified; Translations: [DIARRHEA UNSPECIFIED] Onset: 03-16-2022 Episodic Sprains and strains (4 sources) Strain of muscle, fascia and tendon of lower back, initial encounter; Translations: [Strain of muscle and tendon of front wall of thorax, initial encounter] Onset: 12-23-2021 Episodic Substance-related disorders (2 sources) Nicotine dependence, cigarettes, uncomplicated; Translations: [Nicotine dependence, unspecified, uncomplicated] Onset: 12-20-2021 Chronic Unclassified (4 sources) SWOLLEN TESTICLES 09-27-2021 Past or Other Problems Problem Classification Problem Date Documented Da te Episodic/Chronic Administrative/social admission (2 sources) Encounter for pre-employment examination; Translations: [Encounter for pre-employment examination] Onset: 05-31-2017 Episodic Inflammatory conditions of male genital organs (1 source) Inflammatory disorders of scrotum; Translations: [INFLAMMATORY DISORDERS OF SCROTUM] Onset: 09-30-2021 Episodic Other male genital disorders (2 sources) Right testicular pain; Translations: [RIGHT TESTICULAR PAIN] Onset: 09-26-2021 Episodic Results Test Name Value Interpretation Reference Range Facil ity Vital Signs Date Time Vital Sign Value Performing Clinician Yusuf lity 09-27-2021 15:52-0400 Body height 180.[address] [facility] 09-27-2021 15:52-0400 Body temperature 98.6 [degF] Text Entry Free [facility] 09-27-2021 15:52-0400 Diastolic blood pressure 82 mm[Hg] Text Entry Free [facility] 09-27-2021 15:52-0400 Heart rate 107 /min Text Entry Free [facility] 09-27-2021 15:52-0400 SaO2% (BldA) [Mass fraction] 97 % Text Entry Free [facility] 09-27-2021 15:52-0400 Systolic blood pressure 130 mm[Hg] Text Entry Free [facility] 01-29-2020 00:00-0500 BP Diastolic 63 mm[Hg] GLORY [facility] Work Phone: 01-29-2020 00:00-0500 BP Systolic 108 mm[Hg] [facility] Work Phone: 01-29-2020 00:00-0500 Pulse (Heart Rate) 84 /min [facility] Work Phone: 01-29-2020 00:00-0500 Pulse Oximetry 97 % [facility] Work Phone: 01-29-2020 00:00-0500 Respiratory Rate 19 /min [facility] Work Phone: 01-28-2020 21:20-0500 Body Temperature 98.2 [degF] [facility] Work Phone: 01-28-2020 21:20-0500 Body weight 104.33 kg [facility] Work Phone: 01-28-2020 21:20-0500 Height 170.18 cm [facility] Work Phone: Encounters Encounter Date Encounter Type Care Provider Facility Start: 03-16-2022 End: 03-16-[address] BASILIA GARCIA MD Facility:[facility] Start: 03-01-2022 End: 03-02-2022 ambulatory MAYA LASSITER DO Facility:[facility] Start: 12-23-2021 End: 12-23-2021 Emergency department patient visit TIOMTHY JONES [facility] Start: 12-20-2021 End: 12-20-2021 Emergency department patient visit DR ANGELA KHAN [facility] Start: 09-27-2021 End: 09-27-2021 Emergency department patient visit Text Entry Free [facility] Start: 09-26-2021 End: 09-26-2021 ambulatory ANUSHKA ZAPATA DO Facility:[facility] Start: 01-28-2020 End: 01-29-2020 Emergency department patient visit GLORY [facility] Start: 01-27-2020 Emergency department patient visit Facility:[facility] Start: 05-31-2017 [facility] Date Procedure Procedure Detail Performing Clinician Start: 01-28-2020 CT of abdomen and pe lvis without contrast GLORY PARKER Plan of Treatment Date Care Activity Detail Author [facility] Work Phone: Payers Date Payer Category Payer Unknown [id number] [id number] [id number] 1997 Unknown [id number] [id number] [id number] 1997 Unknown [id number] [id number] 1997 Unknown [id number] [id number] [id number] 1997 Unknown [id number] [id number] [id number] 1959 Unknown [id number] 1957 Unknown [id number] Unknown [employer] Social History Date Type Detail Facility Start: 01-29-2020 Tobacco smoking status NHIS Current Light tobacco smoker [facility] Work Phone: Start: 01-29-2020 [facility] Start: 01-29-2020 [facility] Work [facility]: Start: 01-29-2020 Frequently [facility] Work Phone: Start: 01-29-2020 [facility]: Start: 1995 Sex Assigned At Male C [facility] Work Phone: Tobacco smoking consumption unknown [facility] Goals Date Patient Goal Desired Activity /State Summary Purpose Family History No Family History Records FoundNo Family History Records FoundNo Family History Records FoundNo Family History Records FoundNo Family History Records FoundNo Family History Records Found Advance Directives No Advanced Directives Records FoundNo Advanced Directives Records FoundNo Advanced Directives Records FoundNo Advanced Directives Records FoundNo Advanced Directives Records FoundNo Advanced Directives Records Found Chief Complaint and Reason for Visit Chief Complaint STOMACH PAIN BLOOD I N STOOL Assessments No Assessments Information AvailableNo Assessments Information Available Discharge Instructions Additional Instructions fluids. Motrin as needed. imodium for diarrhea. Return for increasing bleeding. Fluids. Advance diet slowly. Call PCP for follow up. Additional Instructions fluids. Motrin as needed. imodium for diarrhea. Return for increasing bleeding. Fluids. Advance diet slowly. Call PCP for follow up. Additional Source Comments (unrecognized sect ion and content) No Status Records FoundNo Status Records FoundNo Status Records FoundNo Status Records FoundNo Status Records FoundNo Status Records Found INFORMATION SOURCE (unrecogn ized section and content) DATE CREATED AUTHOR AUTHOR'S ORGANIZ ATION 01/29/2020 [facility] DATE CREATED AUTHOR AUTHOR'S ORGANIZ ATION 03/03/2020 [facility] DATE CREATED AUTHOR AUTHOR'S ORGANIZ ATION 10/06/2021 [facility] DATE CREATED AUTHOR AUTHOR'S ORGANIZ ATION 01/12/2022 [facility] DATE CREATED AUTHOR AUTHOR'S ORGANIZ ATION 05/11/2022 [facility] <item><item> Privacy Markings (unrecogniz ed section and content) Section Author: Meka Patricia PROHIBITION ON REDISCLOSURE OF CONFIDENTIAL INFORMATION This notice accompanies a disclosure of information concerning a client made to you with the consent of such client. Section Author: Meka Patricia PROHIBITION ON REDISCLOSURE OF CONFIDENTIAL INFORMATION This notice accompanies a disclosure of information concerning a client made to you with the consent of such client. FOR RECORDS PERTAINING TO PATIENTS WHO ARE OR HAVE BEEN ENROLLED IN A CHEMICAL DEPENDENCY/SUBSTANCEABUSE PROGRAM, SOME INFORMATION MAY BE OMITTED. This clinical summary was aggregated from multiple sources. Caution should be exercised in using it in the provision of clinical care. This summary normalizes information from multiple sources, and as a consequence, information in this document may materially change the coding, format and clinical context of patient data. In addition, data may be omitted in some cases. CLINICAL DECISIONS SHOULD BE BASED ON THE PRIMARY CLINICAL RECORDS. [employer] [facility] provides no warranty or guarantee of the accuracy or completeness of information in this document.
== END 2023-03-21 03:47 | disposition home or self-care (01) ==
PROVIDERS: Emergency Provider Emergency Medicine; Visit Provider Emergency Medicine
DX: S83.411A Sprain of medial collateral ligament of right knee, initial encounter (principal); F17.200 Nicotine dependence, unspecified, uncomplicated; X50.9XXA Other and unspecified overexertion or strenuous movements or postures, initial encounter; Y93.89 Activity, other specified; Y92.810 Car as the place of occurrence of the external cause
CPT/HCPCS: 73564; 96372; 99282

== ENCOUNTER 2023-04-09 13:14 | Emergency (ER) | payer SELFPAY ==
[2023-04-09 13:15] VITALS: BP 159/95; PULSE 95; RESP 18; TEMP 35.8; O2SAT 98; BMI 38.0
[2023-04-09 13:16] VITALS: BP 159/95; PULSE 95; RESP 16; TEMP 36.6; O2SAT 99
--- NOTE | 2023-04-09 13:49 | EDS_ITS ---
HPI <TIANA Miramontes - Last Filed: 04/09/23 16:24> History of Present Illness Chief Complaint: Diarrhea Narrative Narrative: Patient presenting today due to nausea and diarrhea that started this afternoon. His is here for similar symptoms. He reports that they ate at [employer] [facility] this afternoon for a birthday republican and immediately started to feel nauseous. He has had 2 episodes of loose stool since. He has mild generalized abdominal cramping. He denies fevers, chills, melena, hematochezia, and vomiting. PFSH <TIANA Miramontes - Last Filed: 04/09/23 16:24> [facility] Medical History Bilateral knee pain Contact dermatitis due to poison radha Fatty liver Strain of left hand Strain of left wrist Home Medications ondansetron 4 mg disintegrating tablet 4 mg PO Q8H PRN PRN Nausea #10 tabs 04/09/23 [Rx Last Taken Unknown] Allergy/AdvReac Type Severity Reaction Status Date / Time blueberry Allergy Anaphylaxis Verified 04/09/23 13:27 amoxicillin [From Augmentin] AdvReac Rash Verified 04/09/23 13:27 clavulanic acid AdvReac Rash Verified 04/09/23 13:27 [From Augmentin] Social History Smoking Status: Heavy Smoker (>10/day) Tobacco: How many years used: 4 ROS <TIANA Miramontes - Last Filed: 04/09/23 16:24> ROS ED Constitutional Constitutional ED: Denies chills or fever(s) Cardiovascular Cardiovascular: Denies chest pain Respiratory/Chest Respiratory/Chest: Denies cough or dyspnea Gastrointestinal Gastrointestinal: Reports diarrhea, nausea and other Details: Intermittent abdominal cramping ; Denies constipation or vomiting Genitourinary Genitourinary ED: Denies dysuria, hematuria or urinary frequency Musculoskeletal Musculoskeletal: Denies arthralgias or myalgias Integumentary Denies rash Neurologic Neurologic: Denies weakness EXAM <TIANA Miramontes - Last Filed: 04/09/23 16:24> Physical Exam Const Vital Signs: 04/09/23 13:15 04/09/23 13:16 04/09/23 15:09 Temperature 96.4 F L 97.8 F Temperature Source Temporal Temporal Pulse Rate 95 95 Respiratory Rate 18 16 Blood Pressure 159/95 H 159/95 H 134/86 H Blood Pressure Mean 116 116 102 Pulse Ox 98 99 Oxygen Delivery Method Room Air Room Air Positive well nourished, well developed and no apparent distress General Appearance ED: well developed HEENT Reports normocephalic and head/scalp atraumatic Mouth ED: Yes moist mucous membranes normal Eyes PERRL and EOMs intact bilaterally Neck full ROM and supple Chest Wall inspection of chest normal Resp normal respiratory effort and clear to auscultation bilaterally Cardio regular rate and regular rhythm GI soft to palpation, non-tender, non-distended and no masses Back/Spine normal ROM and normal to inspection Extremity normal to inspection and full ROM Neuro oriented x3, CN's II-XII intact bilaterally, moves all extremities, no focal motor deficits and no sensory deficits noted Sensorium / Orientation: awake and alert Psych mental status grossly normal and thought process normal Skin no rashes or lesions noted and no wounds <Dr. Zoila Rinaldi DO - Last Filed: 04/21/23 10:53> Physical Exam Const Vital Signs: 04/09/23 13:15 04/09/23 13:16 04/09/23 15:09 Temperature 96.4 F L 97.8 F Temperature Source Temporal Temporal Pulse Rate 95 95 Respiratory Rate 18 16 Blood Pressure 159/95 H 159/95 H 134/86 H Blood Pressure Mean 116 116 102 Pulse Ox 98 99 Oxygen Delivery Method Room Air Room Air [facility] <TIANA Miramontes - Last Filed: 04/09/23 16:24> [facility] Narrative Medical decision making narrative: Patient presenting due to nausea and diarrhea that started this afternoon. His is here due to nausea, vomiting, and diarrhea that started at the same time. They ate some chicken yesterday that seem to upset her stomach, they then ate at [place] [facility] today and the nausea and diarrhea started after. He is well-appearing and in no acute distress. He has had 2 episodes of diarrhea. His abdomen is soft and nontender. His vitals are unremarkable. Given his symptoms and exam, I do not feel that lab work is indicated at this time or abdominal imaging. Symptoms do sound viral in nature or may possibly be food poisoning. He is requesting a work note for tonight. This will be given. He will be given Zofran and a p.o. challenge. He was able to tolerate fluids without difficulty. He reports improvement of his symptoms. He will be given a prescription for Zofran and will be discharged home in stable condition. He is comfortable with plan. <Dr. Zoila Rinaldi, DO - Last Filed: 04/21/23 10:53> [facility] Narrative Medical decision making narrative: Patient presenting due to nausea and diarrhea that started this afternoon. His is here due to nausea, vomiting, and diarrhea that started at the same time. They ate some chicken yesterday that seem to upset her stomach, they then ate at [employer] today and the nausea and diarrhea started after. He is well-appearing and in no acute distress. He has had 2 episodes of diarrhea. His abdomen is soft and nontender. His vitals are unremarkable. Given his symptoms and exam, I do not feel that lab work is indicated at this time or abdominal imaging. Symptoms do sound viral in nature or may possibly be food poisoning. He is requesting a work note for tonight. This will be given. He will be given Zofran and a p.o. challenge. He was able to tolerate fluids without difficulty. He reports improvement of his symptoms. He will be given a prescription for Zofran and will be discharged home in stable condition. He is comfortable with plan. I have personally performed a face to face assessment of the patient and have reviewed the JAMES Note. I performed a substantive portion of the visit including all aspects of the following. My silva findings include: History is patient is 27-year-old male with no segment past medical history presenting with nausea and diarrhea that started this afternoon. There were eating pizza but then also ate a chicken yesterday that seem to start upsetting her stomach. Patient is presenting with who is having similar GI complaints. Patient overall is well-appearing with stable vital signs. Blood pressure mildly elevated but does improve without intervention. Clinically does not appear dehydrated. Abdomen soft and nontender. Afebrile. No reported blood in the stool. Suspect this could be viral gastroenteritis versus food poisoning. Treatment is symptomatic at this time especially given that he does not have fever, severe abdominal pain or blood in his stool. I do not think he requires further workup at this time. Is given Zofran and p.o. challenge. Is given a work note per his request. Discharged home in stable condition. Is given return precautions. Patient comfortable with plan of care. Other additions or changes: [None] Discharge Plan Triage Chief Complaint: Diarrhea ED Midlevel Provider: Wandy Abdullahi ED Provider: Zoila Rinaldi Dx/Rx/DC Orders Clinical Impression: Diarrhea, Nausea Instructions: ED Diarrhea, Unknown Cause Prescriptions: New ondansetron 4 mg tablet,disintegrating 4 mg PO Q8H PRN PRN (Reason: Nausea) Qty: 10 0RF Stand Alone Forms: ED Work / School Excuse Primary Care Provider: Care Physician,No Primary Referrals: Care Physician,No Primary [Primary Care Provider] - Activity Restrictions/Additional Instructions: Follow-up with your PCP and return for any worsening of your symptoms. Stay well-hydrated. Disposition Disposition: Home, Self Care Discharge Date/Time: 04/09/23 15:09
[2023-04-09] MEDS: Ondansetron ODT 4 MG Tablet PO (13:59)
--- OUTSIDE RECORDS SUMMARY | 2023-04-09 14:01 | XMS RPT_ITS | CCD ---
Author Name Unknown Address [address] [place] [address] Organization [facility] Care Team Providers Care Traffic Rate Clerk Name Role Phone GLORY PALACIO Unavailable Unavailable GLORY PALACIO Unavailable Unavailable GLORY PARKER Primary Care Provider JULES LAMBERT Emergency Provider [phone] Free, Text Entry Unavailable Unavailable BILL, DR [...] Drug Allergy 0 Skin Rash - Hives [facility] Work Phone: (2 sources) clavulanic acid Allergy to substance 0 Skin Rash - Hives [facility] Work Phone: (2 sources) Amoxicillin / Clavulanate Drug Allergy Rash [facility] (1 source) Amoxicillin / Clavulanate Drug Allergy [facility] Repository (1 source) Amoxicillin / Clavulanate Drug Allergy [facility] Repository Medications Current Medications Medication Drug [...] 03-01-2022 Episodic Other aftercare (1 source) Other termite control representative (current) drug therapy; Translations: [Other long-term (current) drug therapy] Onset: 12-23-2021 Episodic Other [...] Body height 180.3 cm Text Entry Free [facility] 09-27-2021 15:52-0400 Body temperature 98.6 [degF] Text Entry Free [facility] 09-27-2021 15:52-0400 Diastolic blood pressure 82 mm[Hg] Text Entry Free [facility] 09-27-2021 15:52-0400 Heart rate 107 /min Text Entry Free [facility] 09-27-2021 15:52-0400 SaO2% (BldA) [Mass fraction] 97 % Text Entry Free [facility] 09-27-2021 15:52-0400 Systolic blood pressure 130 mm[Hg] Text Entry Free [facility] 01-29-2020 00:00-0500 BP Diastolic 63 mm[Hg] GLORY Au [facility] Work Phone: 01-29-2020 00:00-0500 BP Systolic [...] End: 03-16-[address] BASILIA GARCIA MD Facility:[facility] Start: 03-01-2022 End: 03-02-2022 ambulatory MAYA LASSITER DO Facility:[facility] Start: 12-23-2021 End: 12-23-2021 Emergency department patient visit TIMOTHY JONES [facility] Start: 12-20-2021 End: 12-20-2021 Emergency department patient visit DR ANGELA KHAN [facility] Start: 09-27-2021 End: 09-27-2021 Emergency department patient visit Text Entry Free [facility] Start: 09-26-2021 End: 09-26-2021 ambulatory ANUSHKA ZAPATA DO Facility:[facility] Start: 01-28-2020 End: 01-29-2020 Emergency department patient visit GLORY Au [facility] Start: 01-27-2020 Emergency department patient visit Facility:[facility] Start: 05-31-2017 [facility] Procedures Date Procedure Procedure Detail Performing Clinician Start: 01-28-2020 CT of abdomen and pe lvis without contrast GLORY PARKER Plan of Treatment Date Care Activity Detail Author [facility] [employer] [facility] Work Phone: Payers Date Payer Category Payer Unknown [id number] 2.16.84 [id number] 1997 Unknown [id number] 2.16.84 [id number] 1997 Unknown [id number] 2.16.8 [id number] 1997 Unknown [id number] 2.16.8 [id number] 1997 Unknown [id number] 2.16.8 [id number] 1959 Unknown [id number] 1957 Unknown [id number] Unknown [employer] Social History Date Type Detail Facility Start: 01-29-2020 Tobacco smoking status NHIS Current Light tobacco smoker [facility] Work Phone: Start: 01-29-[address] [facility] Work Phone: Start: 01-29-[address] [facility] [facility] Work Phone: Start: 01-29-2020 Frequently [facility] Work Phone: Start: 01-29-[address] [facility] [facility] Work Phone: Start: 1995 Sex Assigned At Male C [facility] Work Phone: Tobacco smoking consumption unknown [facility] Goals Date Patient Goal Desired Activity [...] DATE CREATED AUTHOR AUTHOR'S ORGANIZ ATION 01/29/2020 [facility] DATE CREATED AUTHOR AUTHOR'S ORGANIZ ATION 03/03/2020 [facility] DATE CREATED AUTHOR AUTHOR'S ORGANIZ ATION 10/06/2021 [facility] with [facility] DATE CREATED AUTHOR AUTHOR'S ORGANIZ ATION 01/12/2022 [facility] DATE CREATED AUTHOR AUTHOR'S ORGANIZ ATION 05/11/2022 [facility] ospital <item><item> Privacy Markings (unrecogniz ed [...] BE BASED ON THE PRIMARY CLINICAL RECORDS. [employer] [facility]. provides no warranty or guarantee of the accuracy or completeness of information in this document.
[2023-04-09 15:09] VITALS: BP 134/86
== END 2023-04-09 15:09 | disposition home or self-care (01) ==
PROVIDERS: Emergency Provider Emergency Medicine; Visit Provider Emergency Medicine
DX: R19.7 Diarrhea, unspecified (principal); R11.0 Nausea; F17.200 Nicotine dependence, unspecified, uncomplicated
CPT/HCPCS: 99282

== ENCOUNTER 2023-05-17 05:44 | Emergency (ER) | payer SELFPAY ==
[2023-05-17 05:45] VITALS: BP 120/99; PULSE 78; RESP 16; TEMP 36.6; O2SAT 96; BMI 39.6
--- NOTE | 2023-05-17 05:52 | RAD_ITS ---
INDICATION: PAIN EXAMINATION/TECHNIQUE: X-RAY - RIGHT XR Knee Complete 4 Views or More COMPARISON: 03/21/2023. FINDINGS: SOFT TISSUES: Unremarkable. BONES/JOINTS: No fracture or dislocation. No significant degenerative changes. No erosive changes. RAD/Knee 4 or More Views IMPRESSION: No fracture or dislocation. Electronically Signed: Abdirahman Penn DO at 6:12 EST ,
--- NOTE | 2023-05-17 05:53 | ED.VIS.LOWEX ---
HPI History of Present Illness Chief Complaint: Lower Extremity Injury Informant: patient Narrative Narrative: Patient presents for pain to his right knee. He states he woke up to go to work this morning, as he was getting out of bed he pivoted on his right lower extremity and felt sudden pain in the right knee points to both the medial and lateral aspects near the joint line. Hurts to bear weight but able. No other pain or injuries. No numbness or tingling. States he has had issues with this knee in the past. PFSH PFS Medical History Bilateral knee pain Contact dermatitis due to poison radha Fatty liver Strain of left hand Strain of left wrist Home Medications ondansetron 4 mg disintegrating tablet 4 mg PO Q8H PRN PRN Nausea #10 tabs 04/09/23 [Rx Last Taken Unknown] Allergy/AdvReac Type Severity Reaction Status Date / Time blueberry Allergy Anaphylaxis Verified 05/17/23 05:45 amoxicillin [From Augmentin] AdvReac Rash Verified 05/17/23 05:45 clavulanic acid AdvReac Rash Verified 05/17/23 05:45 [From Augmentin] Social History Smoking Status: Heavy Smoker (>10/day) Tobacco: How many years used: 4 ROS ROS ED Constitutional Constitutional ED: Denies chills or fever(s) Musculoskeletal Musculoskeletal: Reports extremity pain; Denies neck pain Integumentary Denies Abrasions, rash or wounds Neurologic Neurologic: Denies paresthesias or weakness EXAM Physical Exam Const Vital Signs: 05/17/23 05:45 Temperature 97.8 F Temperature Source Oral Pulse Rate 78 Respiratory Rate 16 Blood Pressure 120/99 H Blood Pressure Mean 106 Pulse Ox 96 Oxygen Delivery Method Room Air Positive well nourished and well developed General Appearance ED: well developed and NAD Neck full ROM and supple Back/Spine normal ROM and normal to inspection Extremity normal to inspection and full ROM Extremity Narrative: No bony tenderness. Normal inspection no effusion. All ligaments stable with short endpoints and no pain on stressing any of them. Negative posterior and anterior drawer signs. Neurovascularly intact distally. Neuro oriented x3, no focal motor deficits and no sensory deficits noted Sensorium / Orientation: alert Psych mental status grossly normal and thought process normal Skin no wounds Rashes: no rashes MDM MDM MDM Narrative Medical decision making narrative: 4 view x-ray series of the right knee were obtained and are negative on my interpretation for acute fracture or dislocation. He already took Motrin prior to arrival. He is given an Edu wrap and a work note and a referral to primary care, he can follow-up with orthopedics if his right knee does not improve after 2 weeks. Discharge Plan Triage Chief Complaint: Lower Extremity Injury ED Provider: Ender Escobar Dx/Rx/DC Orders Clinical Impression: Right knee sprain Instructions: ED Knee Sprain Prescriptions: No Action ondansetron 4 mg tablet,disintegrating 4 mg PO Q8H PRN PRN (Reason: Nausea) Qty: 10 0RF Stand Alone Forms: ED Work / School Excuse Primary Care Provider: Care Physician,No Primary Referrals: Axel Hill DO [Med Staff - Active Staff] - 10-14 Days if not better Zoë Chase MD [Med Staff - Carpet Layer Helper] - (for primary care if you do not already have a doctor) Disposition Disposition: Home, Self Care
--- OUTSIDE RECORDS SUMMARY | 2023-05-17 06:19 | XMS RPT_ITS | CCD ---
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 Name Role Phone GLORY PALACIO Unavailable Unavailable GLORY PALACIO Unavailable Unavailable GLORY PARKER Primary Care Provider JULES LAMBERT Emergency Provider Free, Text Entry Unavailable Unavailable BILL, DR [...] Drug Allergy 0 Skin Rash - Hives [facility] Work Phone: (2 sources) clavulanic acid Allergy to substance 0 Skin Rash - Hives [facility] Work Phone: (2 sources) Amoxicillin / Clavulanate Drug Allergy Rash [facility] (1 source) Amoxicillin / Clavulanate Drug Allergy [facility] Repository (1 source) Amoxicillin / Clavulanate Drug Allergy [facility] Repository Medications Current Medications Medication Drug Class(es) [...] 03-01-2022 Episodic Other aftercare (1 source) Other [facility] (current) drug therapy; Translations: [Other tank terminal gauger (current) drug therapy] Onset: 12-23-2021 Episodic Other [...] Body height 180.3 cm Text Entry Free [facility] 09-27-2021 15:52-0400 Body temperature 98.6 [degF] Text Entry Free [facility] 09-27-2021 15:52-0400 Diastolic blood pressure 82 mm[Hg] Text Entry Free [facility] 09-27-2021 15:52-0400 Heart rate 107 /min Text Entry Free [facility] 09-27-2021 15:52-0400 SaO2% (BldA) [Mass fraction] 97 % Text Entry Free [facility] 09-27-2021 15:52-0400 Systolic blood pressure 130 mm[Hg] Text Entry Free [facility] 01-29-2020 00:00-0500 BP Diastolic 63 mm[Hg] GLORY Au [facility] Work Phone: 01-29-2020 00:00-0500 BP Systolic 108 [...] End: 03-16-[address] BASILIA GARCIA MD Facility:[facility] Start: 03-01-2022 End: 03-02-2022 ambulatory MAYA LASSITER DO Facility:[facility] Start: 12-23-2021 End: 12-23-2021 Emergency department patient visit TIMOTHY JONES [facility] Start: 12-20-2021 End: 12-20-2021 Emergency department patient visit DR ANGELA KHAN [facility] Start: 09-27-2021 End: 09-27-2021 Emergency department patient visit Text Entry Free [facility] Start: 09-26-2021 End: 09-26-2021 ambulatory ANUSHKA ZAPATA DO Facility:[facility] Start: 01-28-2020 End: 01-29-2020 Emergency department patient visit GLORY Au [facility] Start: 01-27-2020 Emergency department patient visit Facility[facility] Start: 05-31-2017 [facility] Procedures Date Procedure Procedure Detail Performing Clinician Start: 01-28-2020 CT of abdomen and pe lvis without contrast GLORY PARKER Plan of Treatment Date Care Activity Detail Author [facility] [employer] [facility] Work Phone: Payers Date Payer Category Payer Unknown [id number] 2.16.84 [id number] 1995 Unknown [id number] 2.16.84 [id number] 1997 Unknown [id number] 2.16.8 [id number] 1997 Unknown [id number] 2.16.8 [id number] 1997 Unknown [id number] 2.16.8 [id number] 1959 Unknown [id number] 1957 Unknown [id number] Unknown [employer]TCARE\A[employer]TCARE Social History Date Type Detail Facility Start: 01-29-2020 Tobacco smoking status NHIS Current Light tobacco smoker [facility] Can Work Phone: Start: 01-29-2020 1 DAILY [facility] Work Phone: Start: 01-29-2020 BEER [facility] Work Phone: Start: 01-29-2020 Frequently [employer] [facility] Work Phone: Start: 01-29-2020 No [facility] Work Phone: Start: 1995 Sex Assigned At Male C [facility] Work Phone: Tobacco smoking consumption unknown [facility] Goals Date Patient Goal Desired Activity [...] DATE CREATED AUTHOR AUTHOR'S ORGANIZ ATION 01/29/2020 [facility] DATE CREATED AUTHOR AUTHOR'S ORGANIZ ATION 03/03/2020 [facility] DATE CREATED AUTHOR AUTHOR'S ORGANIZ ATION 10/06/2021 [facility] DATE CREATED AUTHOR AUTHOR'S ORGANIZ ATION 01/12/2022 [facility] DATE CREATED AUTHOR AUTHOR'S ORGANIZ ATION 05/11/2022 [facility] ospital <item><item> Privacy Markings (unrecogniz ed [...] BE BASED ON THE PRIMARY CLINICAL RECORDS. [facility]. provides no warranty or guarantee of the accuracy or completeness of information in this document.
[2023-05-17 06:24] VITALS: BP 118/79; PULSE 89; RESP 16; TEMP 36.4; O2SAT 99
== END 2023-05-17 06:33 | disposition home or self-care (01) ==
LOC: ED 06:18
PROVIDERS: Emergency Provider Emergency Medicine; Visit Provider Emergency Medicine
DX: S83.91XA Sprain of unspecified site of right knee, initial encounter (principal); F17.210 Nicotine dependence, cigarettes, uncomplicated; X58.XXXA Exposure to other specified factors, initial encounter
CPT/HCPCS: 73564; 99282

== ENCOUNTER 2023-07-14 22:17 | Emergency (ER) | payer SELFPAY ==
[2023-07-14 22:18] VITALS: BP 124/85; PULSE 118; RESP 17; TEMP 36.1; O2SAT 97; BMI 37.6
[2023-07-14 22:19] VITALS: BP 134/84; PULSE 100; RESP 19; TEMP 36.6; O2SAT 96
--- NOTE | 2023-07-14 22:35 | EKG12_ITS ---
Test Reason : CP Blood Pressure : / mmHG Vent. Rate : 103 BPM Atrial Rate : 103 BPM P-R Int : 138 ms QRS Dur : 080 ms QT Int : 334 ms P-R-T Axes : 018 007 013 degrees QTc Int : 437 ms Sinus tachycardia Minimal voltage criteria for LVH, may be normal variant ( R in aVL ) Borderline ECG Confirmed by BILL REDMAN, RITIKA ([id number]), editorial assistant MARYA SEGAL ([id number]) on 07/17/2023 9:39:34 AM Referred By: Confirmed By:RITIKA KHAN MD
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
--- NOTE | 2023-07-14 22:38 | RAD_ITS ---
STUDY: X-RAY CHEST REASON FOR EXAM: Male, 27 years old. CHEST PAIN TECHNIQUE: Single AP portable view of the chest. COMPARISON: 05/04/2019 FINDINGS: The lungs are clear and expanded. There is no demonstrated pleural abnormality. Normal size heart. Normal mediastinum and kelsea. Normal visualized pulmonary arteries. Normal visualized aortic arch and descending thoracic aorta. Normal visualized thoracic spine. Normal visualized ribs, clavicles, and shoulders. There is no demonstrated abnormality of the visualized soft tissue structures of the upper abdomen. RAD/Chest 1 View (Portable) IMPRESSION: Normal x-ray examination of the chest. Electronically Signed: Tico Lancaster MD at 23:12 EDT ,
[2023-07-14] MEDS: Aspirin 81 MG TAB.CHEW 324 MG PO (22:48)
[2023-07-14 22:52] LABS: Absolute Lymphocyte Count 3.05 X10^3/uL (0.83-4.51); Absolute Neutrophil Count 6.1 X10^3/uL (2.0-7.7); Basophil# 0.05 X10^3/uL; Basophil% 0.5 % (0-1); Eosinophil# 0.27 X10^3/uL; Eosinophils% 2.5 % (0-5); Hemoglobin 13.9 g/dL (13.0-16.5); Lymphocyte # 3.05 X10^3/ul (0.83-4.51); Lymphocyte % 28.1 % (19-41); Mean Corp Hgb Conc 33.1 g/dL (32-36); Mean Corpuscular Hgb 27.6 pg (27.0-32.0); Mean Corpuscular Volume 83.3 fL (80-94); Mean Platelet Vol. 9.4 fl (6.2-12.0); Monocyte# 1.38 X10^3/uL; Monocyte% 12.7 % (0-10); NRBC Flagged by Analyzer 0 % (0-5); Neutrophil # 6.08 X10^3/uL (2.7-7.7); Platelet Count 402 K/mm3 (150-450); RBC Distribution Width CV 12.3 % (11.6-14.6); RBC Distribution Width SD 37.3 fl (35.1-43.9); Red Blood Count 5.04 M/mm3 (4.6-6.2); White Blood Count 10.9 K/mm3 (4.4-11.0)
[2023-07-14 23:06] LABS: D-Dimer Quantitative (DVT/PE) 0.32 FEU/ug/m (0.27-0.49)
[2023-07-14 23:12] LABS: Anion Gap 6 (5-15); BUN 11 mg/dL (7-18); BUN/Creat Ratio 14.6 RATIO (10-20); Calcium,Total 9.1 mg/dL (8.5-10.1); Chloride 107 mmol/L (98-107); Creatinine, Serum 0.75 mg/dL (0.70-1.30); EST Glomerular Filtration Rate 134 mL/min (>60); Est Glom Filt Rate - Afr Amer 162 mL/min (>60); Glucose 122 mg/dL (74-106); Potassium 3.6 mmol/L (3.5-5.1); Sodium Level 140 mmol/L (136-145); Troponin-I HS (w/2H Reflex) < 3 pg/mL (3.0-78.0)
[2023-07-14 23:19] VITALS: BP 121/77; PULSE 90; RESP 15; TEMP 36.7; O2SAT 94
[2023-07-15] VITALS: BP 122/89; PULSE 97; RESP 17; TEMP 36.4; O2SAT 99
[2023-07-15] MEDS: Doxycycline 100 MG CAPSULE PO (00:24)
[2023-07-15 00:27] VITALS: BP 135/74; PULSE 93; RESP 19; TEMP 37; O2SAT 100
[2023-07-15 00:46] LABS: Reflex Troponin-HS? (from REC) Y
== END 2023-07-15 00:28 | disposition home or self-care (01) ==
PROVIDERS: Emergency Provider Emergency Medicine; Visit Provider Emergency Medicine
DX: R07.9 Chest pain, unspecified (principal); J06.9 Acute upper respiratory infection, unspecified; F17.210 Nicotine dependence, cigarettes, uncomplicated; F17.290 Nicotine dependence, other tobacco product, uncomplicated
CPT/HCPCS: 71045; 80048; 84484; 85025; 85379; 87631; 93005; 99284; A4216